=== PATIENT | male | born 2000 | race Hispanic/Latino ===

== ENCOUNTER 2021-05-29 19:52 | Emergency (ER) | payer MEDICAID ==
[~2021-05-29] VITALS: Ht 167.6 cm; Wt 99.8 kg
[2021-05-29 19:54] VITALS: BP 154/99
[2021-05-29 20:44] VITALS: BP 145/94
[2021-05-29 21:00] LABS: HEMATOCRIT 44.8 % (42-54); MEAN CORPUSCULAR HEMOGLOBIN 28.7 pg (27.0-33.0); MEAN CORPUSCULAR HGB CONC 35.3 g/dL (32.0-36.0); MEAN CORPUSCULAR VOLUME 81.5 fL (80-100); PLATELET COUNT (AUTO) 339 K/uL (130-400); WHITE BLOOD COUNT (AUTO) 12.7 K/uL (4.8-10.8)
[2021-05-29 21:21] LABS: EOSINOPHILS % (MANUAL) 2 % (1-6); LYMPHOCYTES % (MANUAL) 44 % (22-44); MAN.DIFF COMMENT-IMPRESSION MANUAL DIFFERENTIAL; MONOCYTES % (MANUAL) 5 % (2-9); PLATELET MORPHOLOGY COMMENT ADEQUATE; REACTIVE LYMPHOCYTES 2 % (0-0); SEGMENTED NEUTROPHILS % 47 % (40-70)
[2021-05-29 21:28] LABS: ACETAMINOPHEN < 1 mcg/mL (10-29); ALCOHOL, BLOOD < 3 mg/dL (0-10); SALICYLATE < 2.8 mg/dL (2.8-20.0)
[2021-05-29 21:30] LABS: CREATINE KINASE, TOTAL 914 U/L (21-232)
[2021-05-29] MEDS ORDERED: DiphenhydrAMINE HCL 50 MG/ML VIAL IM ONE (22:00)
[2021-05-29] MEDS ORDERED: HALOPERIDOL DECANOATE 100 MG/ML ML IM SCH (22:00)
[2021-05-29] MEDS ORDERED: LORAZEPAM 2 MG/ML 1 ML VIAL IM ONE ×2 (22:00→23:00)
[2021-05-29] MEDS ORDERED: HALOPERIDOL LACTATE 5 MG/ML VIAL IM ONE (22:30)
[2021-05-29] MEDS ORDERED: ZIPRASIDONE MESYLATE 20 MG/VIAL IM SCH (23:00)
[2021-05-29] MEDS ORDERED: 0.9%NACL 1000ML 2,000 ML IV ONE (23:30)
[2021-05-29 23:37] LABS: AMPHET/METH SCREEN,URINE NEGATIVE (NEGATIVE); BARBITURATE SCREEN, URINE NEGATIVE (NEGATIVE); BENZODIAZEPINES SCREEN,URINE NEGATIVE (NEGATIVE); CANNABINOID SCREEN,URINE POSITIVE (NEGATIVE); COCAINE SCREEN,URINE NEGATIVE (NEGATIVE); OPIATE SCREEN,URINE NEGATIVE (NEGATIVE); PHENCYCLIDINE SCREEN,URINE NEGATIVE (NEGATIVE)
[2021-05-29 23:40] LABS: APPEARANCE,URINE Clear (CLEAR); BILIRUBIN,URINE Negative (NEGATIVE); COLOR,URINE Yellow (YELLOW); GLUCOSE, URINE (UA) Negative (NEGATIVE); KETONES,URINE Trace mg/dL (NEGATIVE); LEUKOCYTE ESTERASE ,URINE Negative (NEGATIVE); NITRATE,URINE Negative (NEGATIVE); OCCULT BLOOD,URINE Small (NEGATIVE); PROTEIN,URINE POS 1+ mg/dL (NEGATIVE)
[2021-05-29 23:42] LABS: BACTERIA,URINE Few /HPF (None Seen); MUCUS,URINE Few LPF (None Seen); SQUAMOUS EPITHELIAL CELL,UR None Seen /HPF (0-2); WBC,URINE 0-1 /HPF (0-1)
[2021-05-30] MEDS ORDERED: POTASSIUM CHLORIDE 20MEQ/100ML 100 ML IV SCH (01:00)
[2021-05-30] MEDS ORDERED: 0.9%NACL 1000ML 1,000 ML IV ONE (01:00)
[2021-05-30] MEDS ORDERED: POTASSIUM CHLORIDE 20 MEQ/100 ML BAG IV SCH (01:00)
[2021-05-30 01:09] VITALS: BP 126/84
[2021-05-30 08:30] VITALS: BP 135/74
[2021-05-30] MEDS ORDERED: LACTATED RINGERS 1000ML 1,000 ML IV SCH (08:30)
[2021-05-30] MEDS ORDERED: ZIPRASIDONE MESYLATE 20 MG/VIAL IM ONE ×2 (10:03→23:30)
[2021-05-30] MEDS ORDERED: ZIPRASIDONE MESYLATE 20 MG/VIAL IM SCH (10:30)
[2021-05-30 12:09] LABS: CREATININE 1.1 mg/dL (0.5-1.5); POTASSIUM 3.5 mmol/L (3.5-5.1)
[2021-05-30] MEDS ORDERED: DiphenhydrAMINE HCL 50 MG/ML VIAL ONE (12:36)
[2021-05-30] MEDS ORDERED: HALOPERIDOL LACTATE 5 MG/ML VIAL ONE (12:36)
[2021-05-30] MEDS ORDERED: LORAZEPAM 2 MG/ML 1 ML VIAL ONE (12:37)
[2021-05-30 13:00] VITALS: BP 128/84
[2021-05-30 18:59] VITALS: BP 138/84
[2021-05-30 20:15] VITALS: BP 121/61
[2021-05-30] MEDS ORDERED: LORAZEPAM 2 MG/ML 1 ML VIAL IVP ONE (23:30)
[2021-05-30] MEDS ORDERED: DiphenhydrAMINE HCL 50 MG/ML VIAL IV ONE (23:30)
[2021-05-31 06:35] VITALS: BP 132/78
[2021-05-31 08:07] VITALS: BP 128/85
== END 2021-05-31 12:20 ==
LOC: EDH 19:52
DX: F20.9 Schizophrenia, unspecified (principal); Z20.822 Contact with and (suspected) exposure to COVID-19; Z79.899 Other long term (current) drug therapy
CPT/HCPCS: 36415 ×3; 80048 ×2; 80305; 81001; 82550 ×7; 85025; 87635; 93005; 96361 ×2; 96372 ×10; 96374; 96375; 99285; C9803; G0481; J1200 ×2; J1630 ×2; J2060 ×3; J3480; J3486 ×2; J7030; J7120